=== PATIENT | female | born 1975 | race Two or more races ===

== ENCOUNTER 2022-01-04 00:32 | Emergency (ER) | payer SELFPAY ==
[~2022-01-04] VITALS: Ht 157.5 cm; Wt 67.1 kg
[2022-01-04 00:35] VITALS: BP 168/80
[2022-01-04 02:11] LABS: Urine Bacteria NONE SEEN /hpf (None Seen); Urine Blood Negative /uL (Negative); Urine Mucus FEW (None Seen); Urine Specific Gravity 1.021 (1.001-1.035); Urine WBC 1 /hpf (0 - 5)
== END 2022-01-04 04:45 | disposition left against medical advice (07) ==
LOC: EDBD 00:32 → ER 00:32
DX: R10.31 Right lower quadrant pain (principal); Z53.21 Procedure and treatment not carried out due to patient leaving prior to being seen by health care provider
CPT/HCPCS: 81001; 81025